=== PATIENT | female | born 1945 | race Caucasian/White ===

== ENCOUNTER → 2017-11-10 | Outpatient (CLI) | payer MEDICARE ==
[~2017-11-10] MED LIST: *ONDANSETRON 4 MG VIAL PERIprocedural Use ONLY ONE; ACET325T15 PO; ASPI-516 CHEW; BACL20TA PO; BUPR150CR PO; BUPR150T12; CEFT1INJ IV; CEFU1TAB18 PO; DIAZ2 PO; DIFL200T PO; DIME240C PO; DO NOT ADM ANY ANTICOAGULANT DRUGS PRN; FISHOIL; FLUO20CA12 PO; FLUO40CA PO; LACT PO; LIDOCAINE HCL 1% PF 5 ML SYRINGE OTHER ONE; MIRA25TA PO; NEUR300C PO; NITR1CAP37 PO; Nystatin Liq SWISH-SWAL; ONDA4TAB7 PO; OXYC-395 PO; PANT20TA2 PO; PERI PO; PHENYLEPH/NS 1000 MCG/10 ML SYR IV ONE; POLY17PO3; POLY17S PO; PROPOFOL 200 MG/20 ML AMP IV ONE; PSYL1POW7 PO; SENN187 PO; SOLU125I IV; SUCCINYLCHOLINE CHLORIDE 200 MG/10 ML VIAL IV ONE; TEMA7.5C9 PO; THYR15 PO; TOBRO RIGHT EYE; TRAZ300T2 PO; VITA1000 PO; VITA100021 SL; [UNRECOGNIZED DRUG - OTHER] TOPICAL; fentaNYL CITRATE 250 MCG/5 ML AMP ONE
--- NOTE | 2017-11-10 13:44 | GIPROC ---
[facility] [address] [facility]. [facility], [address] EGD WITH DILATION PROCEDURE REPORT EXAM DATE: 11/10/2017 PATIENT NAME: Chitra Aguilera MR#: [id number] BIRTHDATE: 1945 ATTENDING: Annemarie Strickland MD ORDER #: [id number] SHOE POLISHER: Ashley Meadows and Louise Boss STATUS: outpatient INDICATIONS: The patient is a 72 yr old female here for an EGD with dilation due to dysphagia PROCEDURE PERFORMED: EGD w/ biopsy EGD w/ dilation of esophagus via guidewire MEDICATIONS: None and Per Anesthesia. TOPICAL ANESTHETIC: none CONSENT: The patient understands the risks and benefits of the procedure and understands that these risks include, but are not limited to: sedation, allergic reaction, infection, perforation and/or bleeding. Alternative means of evaluation and treatment include, among others: physical exam, x-rays, and/or surgical intervention. The patient elects to proceed with this endoscopic procedure. medical equipment was checked for proper function. Hand hygiene and appropriate measures for infection prevention was taken. After the risks, benefits and alternatives of the procedure were thoroughly explained, Informed consent was verified, confirmed and timeout was successfully executed by the treatment team. The patient was anesthetized with topical anesthesia and the Pentax EG-[id number] endoscope was introduced through the mouth and advanced to the second portion of the duodenum. The instrument was slowly withdrawn as the mucosa was fully examined. Scope introduced in esophagus-severe frederick esophagistis, some retained food indicating dysmotility, achalasia? scope removed, patient intubated by anesthesia for safety scope reintroduced, esophagus washed aggresively, some of food pushed in stomach duodenum normal-biopsy gastritis antrum-biopsy esophagitis /white deposits suggestive of frederick -biopsy stricture distal esophagus. Dilation was performed at gastroesophageal junction. DILATOR: SIZE(S): RESISTANCE: HEME: APPEARANCE: Dilator: Savary over guidewire Size(s): 14,15 COMMENT: Retroflexed views revealed a hiatal hernia ADVERSE EVENTS: There were no complications. IMPRESSIONS: 1. Scope introduced in esophagus-severe frederick esophagistis, some retained food indicating dysmotility, achalasia? scope removed, patient intubated by anesthesia for safety scope reintroduced, esophagus washed aggresively, some of food pushed in stomach duodenum normal-biopsy gastritis antrum-biopsy esophagitis /white deposits suggestive of frederick -biopsy stricture distal esophagus 2. Retroflexed views revealed a hiatal hernia RECOMMENDATIONS: 1. Await biopsy results. Biopsy results will not be ready for 7-10 days. If you don't hear from us in two weeks, call our office for biopsy results. 2. Begin feeding tomorrow 3. Continue PPI 4. Nystatin swish and swallow diflucan po Ba swallow , may need esophageal manometry based on findings REPEAT EXAM: Return 2 months EGD with dilatation Annemarie Strickland MD eSigned: Annemarie Strickland MD 11/10/2017 1:43 PM cc: PATIENT NAME: Chitra Aguilera MR#: [id number]
--- NOTE | 2017-11-10 13:47 | GIPROC ---
[facility] [address] [facility]. [facility], [address] COLONOSCOPY PROCEDURE REPORT EXAM DATE: 11/10/2017 PATIENT NAME: Chitra Aguilera MR #: [id number] BIRTHDATE: 1945 ENDOSCOPIST: Annemarie Strickland MD ORDER #: [id number] TEACHING ASSISTANT: Ashley Meadows and Louise Boss STATUS: outpatient INDICATIONS: The patient is a 72 yr old female here for a colonoscopy due to severe constipation, fecal impaction PROCEDURE PERFORMED: colonoscopy with disimpaction and decompression MEDICATIONS: None and Per Anesthesia. PREP QUALITY: poor PREP TYPE:Other: ESTIMATED BLOOD LOSS: None CONSENT: The patient understands the risks and benefits of the procedure and understands that these risks include, but are not limited to: sedation, allergic reaction, infection, perforation and/or bleeding. Alternative means of evaluation and treatment include, among others: physical exam, x-rays, and/or surgical intervention. The patient elects to proceed with this endoscopic procedure. medical equipment was checked for proper function. Hand hygiene and appropriate measures for infection prevention was taken. After the risks, benefits and alternatives of the procedure were thoroughly explained, Informed consent was verified, confirmed and timeout was successfully executed by the treatment team. A digital exam revealed external hemorrhoids The Pentax EC-[id number] endoscope was introduced through the anus and advanced to the cecum, which was identified by both the appendix and ileocecal valve. The instrument was then slowly withdrawn as the colon was fully examined. COLON FINDINGS: Large amount of stool up to cecum,agressive washing and suctioning done manual disimpaction done too. Retroflexed views revealed internal hemorrhoids and Retroflexed views revealed small internal hemorrhoids The scope was then completely withdrawn from the patient and the procedure terminated. ADVERSE EVENTS: There were no complications. IMPRESSIONS: 1. Large amount of stool up to cecum,agressive washing and suctioning done manual disimpaction done too 2. Retroflexed views revealed internal hemorrhoids 3. Retroflexed views revealed small internal hemorrhoids 4. Revealed external hemorrhoids RECOMMENDATIONS: 1. Probiotics from any C or health food store 2. Yearly rectal exams 3. High fiber diet 4. Benefiber 2 tsp daily 5. Agressive bowel regimen RECALL: Return 1 year Colonoscopy Annemarie Strickland MD eSigned: Annemarie Strickland MD 11/10/2017 1:47 PM cc: DOCUMENT ADDENDUM eSigned: Annemarie Strickland MD 11/10/2017 1:47 PM Reason for addendum: [ ] Correction of inaccurate information [ ] Recently acquired lab/pathology results [ ] Additional information Comments: PATIENT NAME: Chitra Aguilera MR#: [id number]
[2017-11-10 14:25] VITALS: BP 146/65; PULSE 59; RESP 20; TEMP 97.9; O2SAT 100
== END ==
LOC: HEND 11:11
PROVIDERS: ATTEND Internal Medicine Gastroenterology
DX: B37.81 Candidal esophagitis (principal); K44.0 Diaphragmatic hernia with obstruction, without gangrene; K22.2 Esophageal obstruction; K56.41 Fecal impaction; K64.8 Other hemorrhoids; K64.4 Residual hemorrhoidal skin tags
CPT/HCPCS: 88305; J0330; J2370; J2405; J3010